=== PATIENT | female | born 1975 | race Two or more races ===

== ENCOUNTER 2019-01-13 09:46 | Emergency (ER) | payer MEDICAID ==
[~2019-01-13] VITALS: Ht 152.4 cm; Wt 65.8 kg
[2019-01-13 09:56] VITALS: BP 116/55
[2019-01-13] MEDS ORDERED: HYDROcodone-ACET 5/325MG TAB PO ONE (11:00)
== END 2019-01-13 12:05 | disposition home or self-care (01) ==
LOC: ER 09:52
DX: S52.501A Unspecified fracture of the lower end of right radius, initial encounter for closed fracture (principal); W01.198A Fall on same level from slipping, tripping and stumbling with subsequent striking against other object, initial encounter; Y93.89 Activity, other specified; Y99.8 Other external cause status; Y92.480 Sidewalk as the place of occurrence of the external cause
CPT/HCPCS: 29125; 73090; 81025